=== PATIENT | female | born 1935 ===

== ENCOUNTER 2017-10-03 16:31 | Inpatient (IN) | payer MEDICARE, MEDICAID ==
--- NOTE | 2017-10-03 17:32 | ED PDOC ---
HPI: General Adult Time Seen by Provider: 10/03/17 17:55 Chief Complaint (Nursing): Seizure Chief Complaint (Provider): Seizure History Per: Family History/Exam Limitations: language barrier, other (+ dementia) Onset/Duration Of Symptoms: Days Current Symptoms Are (Timing): Still Present Additional Complaint(s): 81 year old right hand dominant female with a history of dementia and petite mal seizures presents to the ED due to worsening altered mental status for the last few months, worsening mentation over the last 1-2 weeks. Due to language barrier and patient's moderate to severe dementia, history is provided by daughter. As per daughter, patient was sent here from Dr. Dillon' office because she has become more altered and increasingly difficult to care for as well as a recent diagnosis of CVA. There is also concern for seizure with the most recent episode on Tuesday (3 days ago). Daughter is concerned about patient's anti convulsive medication, Keppra, because she claims to have witnessed slurred speech and the patient's difficulty expressing herself while on the medication. Patient has also been witnessed having difficulty ambulating and has become more frail. Otherwise, there are no other medical complaints. No fever/chills/sweats No chest pain/shortness of breath/ palpitations No abdominal pain/nausea/ vomiting No urinary or bowel changes pt is here for further eval pt's without other complaints. PMD: Dr. Charley Dillon Additional information: Per daughter, patient's seizures are petite mal ( complaints of pain and subsequent 10-20 minutes of non verbal behavior and then suddenly awake and alert). Patient was recently dx with stroke and new onset seizures. Past Medical History Reviewed: Historical Data, Nursing Documentation, Vital Signs Vital Signs: Last Vital Signs Temp 97.6 F 10/04/17 16:04 Pulse 88 10/04/17 16:04 Resp 20 10/04/17 16:04 BP 145/97 H 10/04/17 16:04 Pulse Ox 96 10/04/17 16:04 - Medical History PMH: Arthritis, Dementia, HTN - Surgical History Surgical History: No Surg Hx - Family History Family History: States: Unknown Family Hx - Home Medications Home Medications: Ambulatory Orders Medication Instructions Recorded Acetaminophen [Tylenol Extra 500 mg PO DAILY 10/03/17 Strength] Aspirin [Ecotrin] 81 mg PO DAILY 10/03/17 Bisoprolol [Zebeta] 5 mg PO DAILY 10/03/17 Cholecalciferol [Vitamin D 1000 IU] 1,000 unit PO DAILY 10/03/17 Citalopram [celeXA] 10 mg PO DAILY@1500 10/03/17 Colchicine [Mitigare] 0.6 mg PO DAILY 10/03/17 Memantine [Namenda] 5 mg PO HS 10/03/17 amLODIPine [Norvasc] 5 mg PO DAILY 10/03/17 levETIRAcetam [Keppra] 250 mg PO Q12 10/03/17 - Allergies Allergies/Adverse Reactions: Allergies Allergy/AdvReac Type Severity Reaction Status Date / Time No Known Allergies Allergy Verified 10/03/17 16:37 Review of Systems ROS Statement: Except As Marked, All Systems Reviewed And Found Negative Constitutional: Positive for: Weakness. Negative for: Fever Eyes: Negative for: Pain ENT: Negative for: Ear Pain Cardiovascular: Negative for: Chest Pain Respiratory: Negative for: Cough Gastrointestinal: Negative for: Nausea, Vomiting, Abdominal Pain Musculoskeletal: Positive for: Other (difficulty walking) Skin: Negative for: Rash Neurological: Positive for: Weakness, Altered Mental Status Physical Exam - Reviewed Nursing Documentation Reviewed: Yes Vital Signs Reviewed: Yes - Physical Exam Appears: Positive for: Well (alert/awake, GCS = 15, oriented x 1 (not to date/ time/place); cooperative, follows command with ease; NAD), Non-toxic, No Acute Distress Head Exam: Positive for: ATRAUMATIC, NORMAL INSPECTION, NORMOCEPHALIC (bi- temporal wasting noted) Skin: Positive for: Normal Color (cap refill ~ 1 sec, no ulcerations, no petechiae), Warm, Dry. Negative for: Rash Eye Exam: Positive for: EOMI, Normal appearance, PERRL Neck: Positive for: Normal, Painless ROM, Supple, Trachea Midline. Negative for : Decreased ROM Cardiovascular/Chest: Positive for: Regular Rate, Rhythm, Other (+S1, +S2). Negative for: Murmur Respiratory: Positive for: Normal Breath Sounds, Other (CTA b/l, no w/r/r, no tachypenia). Negative for: Respiratory Distress Gastrointestinal/Abdominal: Positive for: Normal Exam, Bowel Sounds, Soft, Other (well nourished female, no focal tenderness, no masses/rebound/guarding/ rigidity, no fonseca's sign, no mcburney's point tenderness). Negative for: Tenderness Back: Positive for: Normal Inspection. Negative for: Vertebral Tenderness Extremity: Positive for: Normal ROM, Other (strength 4+/5 b/l lower ext, strength 5-/5 b/l upper ext; neurovasc intact b/l). 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 Negative for: Motor/Sensory Deficits - Laboratory Results Result Diagrams: 10/03/17 17:54 10/03/17 17:54 - ECG ECG: Positive for: Interpreted By Me, Viewed By Me Interpretation Of Abn EKG: Sinus binta at 55 bpm, LAD, diffuse low voltage, inverted T in leads V1-2, poor baseline, no st changes, ABNL EKG; unchanged compare with old ekg 08/2014 O2 Sat by Pulse Oximetry: 99 (RA) Pulse Ox Interpretation: Normal - Radiology X-Ray: Interpreted by Me, Viewed By Me, Read By Radiologist X-Ray Interpretation: No Acute Disease - Progress ED Course And Treament: 18:43 --Spoke to Dr. Dillon who was made aware of patient's condition and agrees with ED management and treatment. pt is currently comfortable pt is not in any distress pt/family are made aware of her medical results agrees with admission Date of service: 10/03/2017 HISTORY: AMS, likely seizure COMPARISON: Chest radiograph dated 08/27/2014. FINDINGS: LUNGS: Right basilar atelectasis. PLEURA: No significant pleural effusion identified, no pneumothorax apparent. CARDIOVASCULAR: Atherosclerotic aortic calcifications. Cardiomediastinal silhouette stably prominent. OSSEOUS STRUCTURES: Scoliosis. Unchanged. VISUALIZED UPPER ABDOMEN: Right upper quadrant surgical clips. OTHER FINDINGS: None. IMPRESSION: No active disease. --- CT head: pending Date of service: 10/03/2017 PROCEDURE: CT HEAD WITHOUT CONTRAST. HISTORY: intermittent seizures, AMS COMPARISON: None available. TECHNIQUE: Axial computed tomography images were obtained through the head/brain without intravenous contrast. Radiation dose: Total exam DLP = 772.16 mGy-cm. This CT exam was performed using one or more of the following dose reduction techniques: Automated exposure control, adjustment of the mA and/or kV according to patient size, and/or use of iterative reconstruction technique. FINDINGS: HEMORRHAGE: No intracranial hemorrhage. BRAIN: No mass effect or edema. Cortical and cerebellar atrophy, periventricular small vessel disease. VENTRICLES: Unremarkable. No hydrocephalus. CALVARIUM: Unremarkable. PARANASAL SINUSES: Unremarkable as visualized. No significant inflammatory changes. MASTOID AIR CELLS: Unremarkable as visualized. No inflammatory changes. OTHER FINDINGS: None. IMPRESSION: No acute intracranial abnormalities. No significant findings to account for the clinical presentation. Re-evaluation Time: 19:00 Condition: Re-examined, Unchanged - Physician Consult Information Time Consulting Physican Contacted: 18:45 Physician Contacted: Charley Dillon Medical Decision Making Medical Decision Making: Time: 17:10 Impression: bizarre behavior Differential diagnosis: I have considered all the differential diagnosis regarding pt's chief medical complaints/clinical findings, including but are not limited to: altered mental status, uncontrollable behavior, rule out infection Initial Plan: --CT head --EKG --BNP --CMP --TSH --Troponin I --PTT --Prothrombin --CXR --ASA 325 mg PO --NS IV 75 mls/hr --UA ---- Scribe Attestation: Documented by Riya Acevedo, acting as a scribe for Aron Mina MD Provider Scribe Attestation: All medical record entries made by the Scribe were at my direction and personally dictated by me. I have reviewed the chart and agree that the record accurately reflects my personal performance of the history, physical exam, medical decision making, and the department course for this patient. I have also personally directed, reviewed, and agree with the discharge instructions and disposition. Disposition - Clinical Impression Clinical Impression: Altered mental status, unspecified, Seizure disorder - Patient ED Disposition Is Patient to be Admitted: Yes Discussed With : Charley Dillon Doctor Will See Patient In The: ED Counseled Patient/Family Regarding: Studies Performed, Diagnosis, Need For Followup, Rx Given - Disposition Disposition Time: 19:00 Condition: STABLE - Pt Status Changed To: Hospital Disposition Of: Inpatient - Admit Certification Admit to Inpatient:: After my assessment, the patient will require hospitalization for at least two midnights. This is because of the severity of symptoms shown, intensity of services needed, and/or the medical risk in this patient being treated as an outpatient.
--- NOTE | 2017-10-03 17:42 | RAD ---
Date of service: 10/03/2017 HISTORY: AMS, likely seizure COMPARISON: Chest radiograph dated 08/27/2014. FINDINGS: LUNGS: Right basilar atelectasis. PLEURA: No significant pleural effusion identified, no pneumothorax apparent. CARDIOVASCULAR: Atherosclerotic aortic calcifications. Cardiomediastinal silhouette stably prominent. OSSEOUS STRUCTURES: Scoliosis. Unchanged. VISUALIZED UPPER ABDOMEN: Right upper quadrant surgical clips. OTHER FINDINGS: None. IMPRESSION: No active disease.
[2017-10-03 18:00] LABS: BASO # 0.1 K/uL (0.0-0.2); BASO % 1.4 % (0.0-2.0); EOS # 0.1 K/uL (0.0-0.7); EOS % 2.7 % (0.0-4.0); HEMOGLOBIN 11.8 g/dL (12.0-16.0); LYMPH # 1.8 K/uL (1.0-4.3); LYMPH % 32.3 % (20.0-40.0); MEAN CELL VOLUME 88.1 fl (81.0-99.0); MEAN CORPUSCULAR HEMOGLOBIN 29.6 pg (27.0-31.0); MEAN CORPUSCULAR HGB CONC 33.6 g/dL (33.0-37.0); MEAN PLATELET VOLUME 9.2 fl (7.2-11.7); MONO # 0.5 K/uL (0.0-0.8); MONO % 9.9 % (0.0-10.0); NEUT # 2.9 K/uL (1.8-7.0); NEUT % 53.7 % (50.0-75.0); NRBC % 0.1 % (0.0-0.0); RED CELL DISTRIBUTION WIDTH 15.6 % (11.5-14.5); WHITE BLOOD COUNT 5.4 K/uL (4.8-10.8)
[2017-10-03 18:12] LABS: CALCIUM 9.7 mg/dL (8.4-10.2); GFR AFRICAN-AMERICAN > 60; GFR NON-AFRICAN AMERICAN 60
[2017-10-03 18:12] LABS: URINE BILIRUBIN NEGATIVE (NEGATIVE); URINE BLOOD NEGATIVE (NEGATIVE); URINE CLARITY CLEAR (Clear); URINE COLOR STRAW (YELLOW); URINE GLUCOSE (UA) NEG (Normal); URINE LEUKOCYTE ESTERASE NEG Leu/uL (Negative); URINE PROTEIN NEGATIVE (NEGATIVE); URINE UROBILINOGEN 0.2-1.0 mg/dL (0.2-1.0)
[2017-10-03 18:16] LABS: ALB/GLOB RATIO 1.2 (1.0-2.1); ALBUMIN 4.5 g/dL (3.5-5.0); ALT/SGPT 36 U/L (9-52); AST/SGOT 60 U/L (14-36); BLOOD UREA NITROGEN 29 mg/dl (7-17); PARTIAL THROMBOPLASTIN TIME 25.9 Seconds (25.6-37.1); PROTHROMBIN TIME 10.5 Seconds (9.8-13.1)
[2017-10-03 18:23] LABS: B-TYPE NATRIURETIC PEPTIDE 403 pg/ml (0-900)
[2017-10-03] MEDS: Sodium Chloride 0.9% 500 ML IV SCH (18:41)
[2017-10-04] MEDS: Sodium Chloride 0.9% 500 ML IV SCH ×2 (00:45→06:51)
--- NOTE | 2017-10-04 07:31 | CT ---
Date of service: 10/03/2017 PROCEDURE: CT HEAD WITHOUT CONTRAST. HISTORY: intermittent seizures, AMS COMPARISON: None available. TECHNIQUE: Axial computed tomography images were obtained through the head/brain without intravenous contrast. Radiation dose: Total exam DLP = 772.16 mGy-cm. This CT exam was performed using one or more of the following dose reduction techniques: Automated exposure control, adjustment of the mA and/or kV according to patient size, and/or use of iterative reconstruction technique. FINDINGS: HEMORRHAGE: No intracranial hemorrhage. BRAIN: No mass effect or edema. Cortical and cerebellar atrophy, periventricular small vessel disease. VENTRICLES: Unremarkable. No hydrocephalus. CALVARIUM: Unremarkable. PARANASAL SINUSES: Unremarkable as visualized. No significant inflammatory changes. MASTOID AIR CELLS: Unremarkable as visualized. No inflammatory changes. OTHER FINDINGS: None. IMPRESSION: No acute intracranial abnormalities. No significant findings to account for the clinical presentation.
[2017-10-04 09:26] LABS: T4 6.83 ug/dl (5.5-11.0)
[2017-10-04 09:40] LABS: T3 0.998 nmol/L (1.49-2.60)
[2017-10-04] MEDS: Acetaminophen 650mg/20.3ml solution UD PO SCH ×2 (13:13→13:23)
[2017-10-04] MEDS: Cholecalciferol 1,000 INTLU TAB PO SCH (13:14)
[2017-10-04] MEDS: COLCHICINE 0.6 MG CAPSULE PO SCH (13:14)
--- NOTE | 2017-10-04 15:32 | CARD ---
APPROVED REPORT Date of service: 10/03/2017 EKG Measurement Heart [id number] NM [id number] <Conclusion> Sinus bradycardia Otherwise normal ECG
--- NOTE | 2017-10-04 19:07 | CP.PCM.CON ---
History of Present Illness - History of Present Illness History of Present Illness: CONSULT DICTATED NON CONVULSIVE SZ - WITNESSESED BY HER DAUGHTER NEW Vs OLD LEFT HEMIPARESIS DEMENTIA - SENILE PLAN EEG MRI BRAIN ANTI PLATLETS PT KEPPRA 500 MG BID Past Patient History - Past Medical History & Family History Past Medical History?: Yes - Past Social History Smoking Status: Never Smoked - CARDIAC Hx Cardiac Disorders: Yes - PULMONARY Hx Respiratory Disorders: No - NEUROLOGICAL Hx Neurological Disorder: Yes - HEENT Hx HEENT Problems: No - RENAL Hx Chronic Kidney Disease: No - ENDOCRINE/METABOLIC Hx Endocrine Disorders: No - HEMATOLOGICAL/ONCOLOGICAL Hx Blood Disorders: No - INTEGUMENTARY Hx Dermatological Problems: No - MUSCULOSKELETAL/RHEUMATOLOGICAL Hx Musculoskeletal Disorders: Yes - GASTROINTESTINAL Hx Gastrointestinal Disorders: No - GENITOURINARY/GYNECOLOGICAL Hx Genitourinary Disorders: No - PSYCHIATRIC Hx Psychophysiologic Disorder: No - SURGICAL HISTORY Hx Surgeries: Yes Hx Cholecystectomy: Yes - ANESTHESIA Hx Anesthesia: Yes Hx Anesthesia Reactions: No Meds Allergies/Adverse Reactions: Allergies Allergy/AdvReac Type Severity Reaction Status Date / Time No Known Allergies Allergy Verified 10/03/17 16:37 - Medications Medications: Current Medications Acetaminophen (Tylenol 650mg/20.3ml Solution Ud) 500 mg PO DAILY [facility] Last Admin: 10/04/17 13:23 Dose: Not Given Amlodipine Besylate (Norvasc) 5 mg PO DAILY [facility] Last Admin: 10/04/17 10:35 Dose: 5 mg Aspirin (Ecotrin) 81 mg PO DAILY [facility] Last Admin: 10/04/17 10:35 Dose: 81 mg Bisoprolol Fumarate (Zebeta) 5 mg PO DAILY [facility] Last Admin: 10/04/17 13:13 Dose: 5 mg Cholecalciferol (Vitamin D) 1,000 intlu PO DAILY [facility] Last Admin: 10/04/17 13:14 Dose: 1,000 intlu Citalopram Hydrobromide (Celexa) 10 mg PO DAILY@1500 [facility] Last Admin: 10/04/17 18:03 Dose: Not Given Colchicine (Colchicine) 0.6 mg PO DAILY [facility] Last Admin: 10/04/17 13:14 Dose: 0.6 mg Sodium Chloride (Sodium Chloride 0.9%) 500 mls @ 75 mls/hr IV .Q6H40M [facility] Last Admin: 10/04/17 06:51 Dose: Not Given Levetiracetam (Keppra) 500 mg PO BID [facility] Last Admin: 10/04/17 18:03 Dose: Not Given Memantine (Namenda) 5 mg PO HS [facility] Results - Vital Signs Recent Vital Signs: Last Vital Signs Temp 97.6 F 10/04/17 16:04 Pulse 88 10/04/17 16:04 Resp 20 10/04/17 16:04 BP 145/97 H 10/04/17 16:04 Pulse Ox 96 10/04/17 16:04 - Labs Result Diagrams: 10/03/17 17:54 10/03/17 17:54 Labs: Laboratory Results - last 24 hr 10/04/17 10/04/17 08:51 08:51 Hemoglobin A1c 5.6 Vitamin B12 501 Thyroxine (T4) 6.83 Total T3 0.998 L TSH 3rd Generation 5.39 H
[2017-10-05] MEDS: Sodium Chloride 0.9% 500 ML IV SCH ×4 (02:47→22:25)
--- NOTE | 2017-10-05 06:53 | CON ---
DATE: 10/04/2017 NEUROLOGIC INITIAL EVALUATION LOCATION: The patient is in room 669, bed 1. REASON FOR CONSULTATION: Seizures. CHIEF COMPLAINT: The patient was brought in by a family member (daughter) with a history of witnessed staring spell. The patient has been taking medication for her seizures; however, she thinks that this medication is not working. From neurology point of view, I was called into evaluate her for further management. HISTORY OF PRESENT ILLNESS: Ms. Farzaneh Valadez is a thinly built 81-year-old female who lives with her daughter brought into [facility] with a history of a witnessed staring spell. The patient has known history of seizures. He has been on medication Keppra 250 mg twice a day. In spite of medication, her daughter thinks medication is not working. No history of fall. No history of tremor. No history of head injury. No history of involuntary movements. No history of bowel and bladder incontinence associating with this problem. PAST MEDICAL HISTORY: Hypertension, gouty arthritis, dementia, and seizures. PERSONAL HISTORY: Denies smoking or alcohol use. ALLERGIES: NO KNOWN ALLERGIES. MEDICATIONS: Aspirin, bisoprolol, vitamin D, Celexa, colchicine, Namenda, Norvasc, and Keppra. REVIEW OF SYSTEMS: A 12-point systems have been reviewed. From neuro, seizures. PHYSICAL EXAMINATION: VITAL SIGNS: Blood pressure 145/97, mean arterial pressure of 113, respiratory rate 16, and temperature afebrile. NECK: Supple. No carotid bruits. HEART: Sounds are regular. CHEST: Fair air entry. EXTREMITIES: No edema in legs. Significant distal muscle group atrophy more than proximal muscle groups are noted. NEUROLOGIC: The patient is communicable only in Bengali. Cranial nerve examination: Visual field decreased throughout visual threat on her left side. Extraocular movement decreased in all direction. Mild facial asymmetry manifesting and threatening of the left nasolabial fold. Hearing seems to be intact. Mouth is moist. MOTOR EXAMINATION: Moves right side than her left side. Tone is somewhat increased in both sides; however, left side is more than her right side. Deep tendon reflexes are absent. Plantars are equivocal response on both sides. Sensory examination: Responds to pain symmetrically on both sides. Coordination: Negative for this time because of poor cooperation. WORKUP: CT of the head no acute pathology is noted. EKG: Normal sinus rhythm. LABORATORY DATA: Blood workup; WBC 5.4, hemoglobin 11.8, hematocrit 35.2, and platelet 216. PT 10.5, INR 1, PTT 25.9. Sodium 142, potassium 4.8, chloride 102, bicarbonate 28, BUN 29, creatinine 0.9, GFR more than 60. AST more than 60. Troponin 0.0170. B12 is 501. Homocystine is pending. TSH 5.39. Urine shows 3+ rbc's and color is straw. CONCLUSION: 1. As per neurological examination, Farzaneh Valadez has been presenting with a possible nonconvulsive seizures, being subtherapeutic dose of Keppra. 2. Right cortical dysfunction manifesting as a left hemiparesis. It could be new versus old. She needs further workup to rule out any new ischemic process. 3. Peripheral neuropathy. 4. 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 RECOMMENDATIONS: 1. MRI of the brain is recommended to rule out any new acute or ischemic process. 2. Blood workup for dementia. 3. Keppra dose is increased to 500 twice a day. 4. EEG. 5. Out of bed and the physiotherapy should be entertained as it is possible. The patient will be followed while she is in the hospital. Vasquez Cary MD MTDD
--- NOTE | 2017-10-05 09:58 | HP ---
HISTORY OF PRESENT ILLNESS: This patient is an 81-year-old female with history of multiple medical problems including degenerative spine disease, osteoarthritis, hypertension, dementia, CVA, and seizure disorder, on medications presented to my office on the day of admission with progressive disease in her ability to ambulate and worsening of her mental status. The patient's caregiver is daughter who lives with her mother. The patient was referred to emergency room for evaluation where she was admitted for further management. REVIEW OF SYSTEMS: Other review of systems is negative. ALLERGIES: NO KNOWN ALLERGIES. MEDICATIONS: As per MAR. PAST MEDICAL HISTORY: Seizure disorder, hypertension, osteoarthritis, degenerative spine disease. SOCIAL HISTORY: No history of smoking, EtOH or substance abuse. FAMILY HISTORY: Noncontributory. PHYSICAL EXAMINATION: VITAL SIGNS: Blood pressure is 164/99, temperature 97.4, respiratory rate 20, and pulse 79. HEENT: Normal-appearing mucosa of the conjunctivae. NECK: Supple. No JVD. No carotid bruits. No lymph nodes. No thyromegaly. CHEST AND LUNGS: Bilateral symmetrical expansion. Good air exchange. No rales. No rhonchi. CARDIOVASCULAR SYSTEM: PMI not localized. S1 and S2. No additional sounds. ABDOMEN: Normoactive bowel sounds. No tenderness. No organomegaly. No masses. EXTREMITIES: No cyanosis. No clubbing. No edema. TERRAZZO GRINDER: Awake, but she is confused and moves all extremities equally. ASSESSMENT: Advanced osteoarthritis, degenerative spine disease with possible radiculopathy, cerebrovascular accident, and hypertension. PLAN: Continue current medications and follow Neurology recommendations, physical therapy. Charley Dillon MD
[2017-10-05] MEDS: Cholecalciferol 1,000 INTLU TAB PO SCH (11:52)
[2017-10-05] MEDS: COLCHICINE 0.6 MG CAPSULE PO SCH (11:53)
[2017-10-05] MEDS: Acetaminophen 650mg/20.3ml solution UD PO SCH (11:53)
--- NOTE | 2017-10-05 15:17 | RAD ---
Date of service: 10/05/2017 PROCEDURE: Right Knee Radiographs. HISTORY: Knee pain COMPARISON: None. FINDINGS: BONES: Normal. No fracture. JOINTS: Degenerative changes affecting both medial lateral compartments with relative sparing of the patellofemoral joint. Evidence of chondrocalcinosis a normal variant. JOINT EFFUSION: None. OTHER FINDINGS: None. IMPRESSION: Mild multi compartmental degenerative change. No acute findings
--- NOTE | 2017-10-05 15:18 | RAD ---
Date of service: 10/05/2017 PROCEDURE: Pelvis right hip HISTORY: hip pain COMPARISON: None TECHNIQUE: Standard protocol for this study/examination. FINDINGS: Evidence of old trauma. Deformity and remodeling of the right femoral head. Secondary degenerative changes without radiographic evidence of osteonecrosis. No acute osseous abnormalities in the pelvis. Mild degenerative changes contralateral hip. IMPRESSION: No acute findings related to/accounting for the clinical presentation.
--- NOTE | 2017-10-05 18:38 | MRI ---
Date of service: 10/05/2017 PROCEDURE: MRI BRAIN WITHOUT CONTRAST HISTORY: NEW RIGHT CORTICAL DYSFUNCTION COMPARISON: Comparison made with CT scan brain 10/03/2017. TECHNIQUE: Multiplanar, multisequence MR images of the brain were obtained without intravenous contrast enhancement. FINDINGS: HEMORRHAGE: None DWI: There are small acute/subacute infarct changes seen in right parasagittal posterior frontal region possibly in the right cingulate gyrus and another in the left posterior superior parietal subcortical white matter near the depth of the central sulcus. No other acute infarcts are identified. BRAIN PARENCHYMA: Moderate chronic white matter ischemic changes with multiple more discrete chronic appearing lacunar type infarcts scattered about the deep and subcortical white matter and to a lesser degree both basal nuclei. Numerous dilated perivascular spaces within both basal nuclei. Moderate to significant generalized volume loss including posterior fossa structures. VENTRICLES: No obstructive hydrocephalus. CRANIUM: Unremarkable. ORBITS: Grossly unremarkable. PARANASAL SINUSES/MASTOIDS: Clear VASCULAR SYSTEM: Note that the left petrous cavernous carotid segment is poorly seen. The possibility of partial thrombosis not excluded. The mid and distal cavernous carotid segments including the supraclinoid segments appear patent so far as can be seen. . OTHER FINDINGS: None. IMPRESSION: There are small acute/ the subacute infarct seen in both cerebral hemispheres one in the region of the right parasagittal posterior frontal region, likely in the cingulate gyrus and another in the left posterior parietal subcortical white matter near the depth of the central sulcus. Moderate chronic white matter ischemic changes with multiple more discrete chronic appearing lacunar type infarcts scattered about the deep and subcortical white matter and to a lesser degree both basal nuclei. Moderate to significant generalized volume loss including posterior fossa structures. Note that the left petrous carotid artery is not well delineated and the possibility of a partial thrombosis not excluded. Phone message left with Dr. Gage at approximately 6:25 p.m.. Findings also discussed with 6 [place] Nurse Abraham at approximately 6:27 p.m..
--- NOTE | 2017-10-06 04:25 | PN ---
DATE: 10/05/2017 SUBJECTIVE: The patient is seen today, 10/05/2017. She is not in any cardiopulmonary distress. The patient has dementia. OBJECTIVE: VITAL SIGNS: Blood pressure 117/71, temperature 97.8, respiratory rate 20, and pulse 68. HEENT: Normal-appearing mucosa of the conjunctivae. NECK: Supple. No JVD. No carotid bruit. No lymph node. No thyromegaly. CHEST AND LUNGS: Bilateral symmetrical expansion. Good air exchange. No rales, no rhonchi. CARDIOVASCULAR SYSTEM: PMI not localized. S1, S2. No additional sounds. ABDOMEN: Normoactive bowel sounds. No tenderness. No organomegaly. No masses. EXTREMITIES: No cyanosis, no clubbing, no edema. TIMBER BUCKER: Awake but confused and disoriented. ASSESSMENT: Frequent falls, status post cerebrovascular accident, seizure disorder, hypertension, osteoarthritis. PLAN: Follow neurology recommendations and continue current management, physical therapy; and plan to discharge to subacute rehab. [facility] MD Santana
[2017-10-06 06:30] LABS: HEMOGLOBIN 12.1 g/dL (12.0-16.0); MEAN CELL VOLUME 89.1 fl (81.0-99.0); MEAN CORPUSCULAR HEMOGLOBIN 29.7 pg (27.0-31.0); MEAN CORPUSCULAR HGB CONC 33.3 g/dL (33.0-37.0); RBC 4.07 Mil/uL (3.80-5.20); RED CELL DISTRIBUTION WIDTH 15.5 % (11.5-14.5); WHITE BLOOD COUNT 6.6 K/uL (4.8-10.8)
[2017-10-06] MEDS: Sodium Chloride 0.9% 500 ML IV SCH (06:42)
[2017-10-06 06:51] LABS: BLOOD UREA NITROGEN 21 mg/dl (7-17); GFR AFRICAN-AMERICAN > 60; GFR NON-AFRICAN AMERICAN > 60
[2017-10-06] MEDS: Cholecalciferol 1,000 INTLU TAB PO SCH (08:26)
[2017-10-06] MEDS: Acetaminophen 650mg/20.3ml solution UD PO SCH (08:27)
--- NOTE | 2017-10-06 14:43 | CARD ---
APPROVED REPORT Date of service: 10/06/2017 EXAM: Two-dimensional and M-mode echocardiogram with Doppler and color Doppler. Other Information Quality : FairRhythm : NSR Technically limited study due to Pt Not Very cooperative INDICATION AMS,CARDIO EMBOLIGENESIS 2D DIMENSIONS IVSd0.85 (0.7-1.1cm)LVDd3.01 (3.9-5.9cm) LVOT Diameter1.82 (1.8-2.4cm)PWd1.00 (0.7-1.1cm) IVSs0.99 (0.8-1.2cm)LVDs2.60 (2.5-4.0cm) FS (%) 13.8 %PWs1.04 (0.8-1.2cm) M-Mode DIMENSIONS Left Atrium (MM)3.32 (2.5-4.0cm)IVSd0.41 (0.7-1.1cm) Aortic Root2.93 (2.2-3.7cm)LVDd4.58 (4.0-5.6cm) Aortic Cusp Exc.1.60 (1.5-2.0cm)PWd0.80 (0.7-1.1cm) IVSs1.42 cmFS (%) 48 % LVDs2.39 (2.0-3.8cm)PWs1.03 cm Mitral Valve MV E Stzibdaw86.2cm/sMV DECEL [id number] A Noamgpvz21.4cm/s MV UMQ81syG/A ratio0.5MVA (PHT)2.70cm2 TDI Medial E' Peak V3.42cm/sE/Lateral E'0.0E/Medial E'10.3 LEFT VENTRICLE The left ventricle is normal size. There is mild to moderate concentric left ventricular hypertrophy. The left ventricular function is normal. The left ventricular ejection fraction is within the normal range. LVEF 65% There is normal LV segmental wall motion. The left ventricular diastolic function is normal. No left ventricle thrombus noted on this study. There is no ventricular septal defect visualized. There is no left ventricular aneurysm. There is no mass noted in the left ventricle. RIGHT VENTRICLE The right ventricle is normal size. There is normal right ventricular wall thickness. The right ventricular systolic function is normal. ATRIA The left atrium size is normal. The right atrium size is normal. The interatrial septum is intact with no evidence for an atrial septal defect. AORTIC VALVE The aortic valve is normal in structure. No aortic regurgitation is present. There is no aortic valvular stenosis. There is no aortic valvular vegetation. MITRAL VALVE The mitral valve is normal in structure. There is no evidence of mitral valve prolapse. There is no mitral valve stenosis. Mitral regurgitation is trace to mild. TRICUSPID VALVE The tricuspid valve is normal in structure. There is no tricuspid valve regurgitation noted. There is no tricuspid valve prolapse or vegetation. There is no tricuspid valve stenosis. PULMONIC VALVE The pulmonary valve is normal in structure. There is no pulmonic valvular regurgitation. There is no pulmonic valvular stenosis. GREAT VESSELS The aortic root is normal in size. The IVC is normal in size and collapses >50% with inspiration. PERICARDIAL EFFUSION The pericardium appears normal. There is no pleural effusion. <Conclusion> The left ventricle is normal size. There is mild to moderate concentric left ventricular hypertrophy. The left ventricular function is normal. The left ventricular ejection fraction is within the normal range. LVEF 65% The aortic valve is normal in structure. Mitral regurgitation is trace to mild.
--- NOTE | 2017-10-06 15:02 | CARD ---
APPROVED REPORT Date of service: 10/06/2017 EKG Measurement Heart [id number] VA [id number] <Conclusion> Sinus rhythm with premature atrial complexes Left axis deviation Nonspecific ST and T wave abnormality Abnormal ECG
--- NOTE | 2017-10-07 00:39 | PN ---
DATE: 10/06/2017 DAILY PROGRESS NOTE SUBJECTIVE: The patient is seen today, 10/06/2017. She is not in any cardiopulmonary distress. The patient has been followed by Neurology, and she had MRI and EEG. PHYSICAL EXAMINATION: VITAL SIGNS: Blood pressure 142/87, temperature 97.5, respiratory rate 20, and pulse 76. HEENT: Pupils are equal and reactive to light. Normal-appearing mucosa of the conjunctivae, oropharynx and nasal membrane mucosa. NECK: Supple. No JVD. No carotid bruit. No lymph node. No thyromegaly. CHEST AND LUNGS: Bilateral symmetrical expansion. Good air exchange. No rales. No rhonchi. CARDIOVASCULAR SYSTEM: PMI not localized. S1, S2. No additional sounds. ABDOMEN: Normoactive bowel sounds. No tenderness. No organomegaly. No masses. EXTREMITIES: No cyanosis, no clubbing, no edema. MEDICAL INSURANCE CODING SPECIALIST: Alert, awake, oriented x2. The patient has no neurological deficit. The patient moves all extremities equally. LABORATORY DATA: MRI of the brain was done that showed small acute/subacute infarct seen in both peripheral hemispheres, one in the region of the right posterior frontal region likely in the cingulate gyrus and another in the left posterior partial subcortical white matter near the depth of the central sulcus. Moderate chronic white matter ischemic changes with volume loss. ASSESSMENT: Cerebrovascular accident, seizure disorder, hypertension, osteoarthritis, dysfunctional gait. PLAN: Follow Neurology recommendation, continue physical therapy, and transfer the patient to telemetry floor since the patient's MRI came back positive for acute cerebrovascular accident. Charley Dillon MD
[2017-10-07] MEDS: Sodium Chloride 0.9% 500 ML IV SCH ×2 (03:22→08:25)
--- NOTE | 2017-10-07 07:40 | PN ---
DATE: 10/06/2017 TIME OF EVALUATION: 06:40 a.m. NEUROLOGICAL PROBLEM: Seizures with new stroke process. PHYSICAL EXAMINATION: VITAL SIGNS: Blood pressure 124/74, mean arterial pressure of 90, respiratory rate 18, temperature 97.6 with a pulse rate 64, . The patient easily arousable on calling her first name. She knows she is in the hospital. She is complaining of cold. She moves right more than her left side. Facial asymmetry is somewhat well pronounced, asymmetry of left nasolabial fold to compare with the right side. Deep tendon reflexes are unchanged. Plantars are upgoing on both sides. ASSESSMENT: The patient's condition has been discussed with the registered nurse. I was told that her daughter does not want to be on her Keppra because of her change in mental status. The patient's condition has been explained through the nurse to advise to her daughter to contact me. Her change in mental status is all related to her new stroke process. She was on subtherapeutic dose of the Keppra. Keppra seems to be increased as I requested 500 mg twice a day. The patient does not have any seizures while she is in the hospital. Aspirin is switched to Plavix for her better coverage. Continue the present management. The patient also requested to have an echocardiogram to rule out any cardiac cause for her unexplained bilateral deep subcortical strokes. PLAN: The patient should be out of bed and physical therapy should be entertained as early as possible. When medically stable, the patient can be transferred to acute rehab. Vasquez Cary MD
[2017-10-07] MEDS: Cholecalciferol 1,000 INTLU TAB PO SCH (08:24)
[2017-10-07] MEDS: Acetaminophen 650mg/20.3ml solution UD PO SCH (08:29)
[2017-10-07 11:47] LABS: HDL CHOLESTEROL 42 MG/DL (30-70)
[2017-10-07 11:58] LABS: LDL CHOLESTEROL 79 mg/dL (0-129)
[2017-10-07 20:48] VITALS: BP 145/88; PULSE 98; RESP 18; TEMP 98.2; O2SAT 99
--- NOTE | 2017-10-07 23:07 | PQF ---
PROVIDER RESPONSE TEXT: New CVA REVIEWER QUERY TEXT: Clarification of Clinical Diagnostic Findings New CVA versus hx. of CVA? 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 DRAFT 10/05: Attending:Frequent falls, status post cerebrovascular accident, seizure disorder, hyperte nsion, osteoarthritis. Update... The patient's Clinical Indicators include: xxxx Query created by: Jessica Sanz on 10/06/2017 9:36 AM Electronically signed by: Charley Dillon MD 10/07/2017 11:03 PM
--- NOTE | 2017-10-08 16:22 | PQF ---
PROVIDER RESPONSE TEXT: Difficulty ambulating , found to have CVA REVIEWER QUERY TEXT: Condition Necessitating Admission Please clarify the medical condition(s) necessitating admission DRAFT: H and P: Assessment: Advanced osteoarthritis, degenerative spine disease with possible radicul opathy, cerebrovascular accident, and hypertension. Neuro consult: 1. possible nonconvulsive seizures, being subtherapeutic dose of Keppra. 2. Right cor tical dysfunction manifesting as a left hemiparesis. It could be new versus old. She needs further wo rkup to rule out any new ischemic process. 3. Peripheral neuropathy. 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 DRAFT 10/05: Attending progress note: Assessment: Frequent falls, status post cerebrovascular accident , seizure disorder, hypertension, osteoarthritis. The patient's Clinical Indicators include: xxx Query created by: Jessica Sanz on 10/06/2017 9:34 AM Electronically signed by: Charley Dillon MD 10/08/2017 4:19 PM
--- NOTE | 2017-10-19 17:40 | PQF ---
PROVIDER RESPONSE TEXT: New on top of old CVA with left hemiparesis present on admission. REVIEWER QUERY TEXT: Documentation Clarification Your help is requested in clarifying the following clinical documentation, if you can please further specify in the medical record and discharge summary. 10/[address] Cary new vs old left hemiparesis. If known please clarify if pt's hemiparesis is of acute or chronic onset. The patient's Clinical Indicators include: left hemiparesis Query created by: Mariel Garcia on 10/10/2017 11:09 AM Electronically signed by: Charley Dillon MD 10/19/2017 5:37 PM
== END 2017-10-07 21:05 | DRG 65 ==
LOC: H.ER 16:31 → H.ERHOLD 18:52 → H.MEDSURG1 10-04 00:49 → H.TEL 10-06 12:57
PROVIDERS: ADMIT Internal Medicine; ATTEND Internal Medicine
DX: I63.9 Cerebral infarction, unspecified (principal); G81.94 Hemiplegia, unspecified affecting left nondominant side; F03.90 Unspecified dementia, unspecified severity, without behavioral disturbance, psychotic disturbance, mood disturbance, and anxiety; I10 Essential (primary) hypertension; Z86.73 Personal history of transient ischemic attack (TIA), and cerebral infarction without residual deficits; G40.409 Other generalized epilepsy and epileptic syndromes, not intractable, without status epilepticus; M10.9 Gout, unspecified; M19.90 Unspecified osteoarthritis, unspecified site; G62.9 Polyneuropathy, unspecified; R29.6 Repeated falls; M48.9 Spondylopathy, unspecified; R26.2 Difficulty in walking, not elsewhere classified